=== PATIENT | male | born 1975 | race Caucasian/White ===

== ENCOUNTER 2018-05-29 14:33 | Inpatient (IN) | payer OTHER ==
[~2018-05-29] VITALS: Ht 165.1 cm; Wt 64.9 kg
[~2018-05-29 14:33] MED LIST changes: -BISA5TAB5 PO; -FURO40TA6 PO; -REGADENOSON 0.4 MG/5 ML SYRINGE ONE; -SERT50TA PO
[2018-05-29 15:12] VITALS: BP 82/58
[2018-05-29] MEDS ORDERED: BISA5TAB5 PO (16:14)
[2018-05-29] MEDS ORDERED: SERT50TA PO (16:14)
[2018-05-29] MEDS ORDERED: ACETAMINOPHEN 325 MG TABLET PO PRN (16:30)
[2018-05-29] MEDS ORDERED: FUROSEMIDE 40 MG TABLET PO SCH (16:30)
[2018-05-29 16:38] LABS: BASOPHILS # (AUTO) 0.19 x10^3/uL (0-0.1); BASOPHILS % (AUTO) 2 % (0-1); EOSINOPHILS # (AUTO) 0.07 x10^3/uL (0-0.4); EOSINOPHILS % (AUTO) 1 % (1-7); LYMPHOCYTES % (AUTO) 9 % (22-44); MD NO; MEAN CORPUSCULAR HEMOGLOBIN 29.1 pg (27.5-34.5); MEAN CORPUSCULAR VOLUME 88.1 fL (81-97); MEAN PLATELET VOLUME 9.6 fL (7.4-10.4); MONOCYTES % (AUTO) 4 % (2-9); NEUTROPHILS # (AUTO) 9.48 x10^3/uL (1.8-6.8); NEUTROPHILS % (AUTO) 84 % (42-75); PLATELET COUNT 354 x10^3/uL (130-400); RED BLOOD COUNT 4.98 x10^6/uL (4.38-5.82); RED CELL DISTRIBUTION WIDTH 14.1 % (9.4-14.8)
[2018-05-29 16:47] LABS: ALANINE AMINOTRANSFERASE 76 U/L (12-78); ALBUMIN 3.3 g/dL (3.4-5.0); ANION GAP 9 mmol/L (5-15); CALCIUM 8.4 mg/dL (8.5-10.1); CHLORIDE 102 mmol/L (98-107)
[2018-05-29] MEDS ORDERED: FURO40TA6 PO (16:48)
[2018-05-29 16:51] LABS: ALKALINE PHOSPHATASE 94 U/L (45-117); BILIRUBIN,TOTAL 2.5 mg/dL (0.2-1.0); TOTAL PROTEIN 6.9 g/dL (6.4-8.2); TROPONIN I < 0.015 ng/mL (0.000-0.045)
[2018-05-29] MEDS ORDERED: FUROSEMIDE 20 MG/2 ML ONE (17:28)
[2018-05-29] MEDS ORDERED: FUROSEMIDE 20 MG/2 ML IV SCH (17:30)
[2018-05-29 17:35] VITALS: BP 94/64
[2018-05-29 18:27] VITALS: BP 92/66
[2018-05-29] MEDS: SPIRONOLACTONE 25 MG TABLET PO SCH (18:29)
[2018-05-29 20:44] VITALS: BP 91/54
[2018-05-29] MEDS: SACUBITRIL/VALSARTAN 24MG-26MG TAB PO SCH (21:22)
[2018-05-29] MEDS: SODIUM CHLORIDE FLUSH 10ML SYR IVF SCH (21:22)
[2018-05-29] MEDS: RANOLAZINE 500 MG TAB.ER.12H PO SCH (21:22)
[2018-05-29 22:00] LABS: TROPONIN I < 0.015 ng/mL (0.000-0.045)
[2018-05-29] MEDS: METOPROLOL SUCCINATE 25 MG TAB.ER.24H PO SCH (22:45)
[2018-05-30 01:00] VITALS: BP 91/63
[2018-05-30 04:31] LABS: INTERNATIONAL NORMALIZED RATIO 7.09 (0.93-1.1)
[2018-05-30 04:38] LABS: ANION GAP 9 mmol/L (5-15); CHLORIDE 102 mmol/L (98-107)
[2018-05-30 04:45] LABS: CREATININE 1.52 mg/dL (0.7-1.3); TROPONIN I < 0.015 ng/mL (0.000-0.045)
[2018-05-30] MEDS ORDERED: ATENOLOL 50 MG TABLET PO SCH (06:00)
[2018-05-30 07:30] VITALS: BP 96/68
[2018-05-30] MEDS: SODIUM CHLORIDE FLUSH 10ML SYR IVF SCH ×2 (09:00→21:22)
[2018-05-30] MEDS: RANOLAZINE 500 MG TAB.ER.12H PO SCH ×2 (09:04→21:21)
[2018-05-30] MEDS: SACUBITRIL/VALSARTAN 24MG-26MG TAB PO SCH ×2 (09:04→21:21)
[2018-05-30] MEDS: DOCUSATE 100 MG CAPSULE PO SCH (09:05)
[2018-05-30] MEDS: METOPROLOL SUCCINATE 25 MG TAB.ER.24H PO SCH ×2 (09:05→21:21)
[2018-05-30] MEDS: PANTOPROZOLE 40MG TABLET PO SCH (09:05)
[2018-05-30 13:25] VITALS: BP 87/57
[2018-05-30] MEDS ORDERED: ONDANSETRON 2MG/ML, 2ML IVPush PRN (15:00)
[2018-05-30] MEDS: FUROSEMIDE 40 MG/4 ML IV SCH (16:03)
[2018-05-30] MEDS: SPIRONOLACTONE 25 MG TABLET PO SCH (18:05)
[2018-05-30 20:47] VITALS: BP 90/56
[2018-05-31 02:36] VITALS: BP 92/57
[2018-05-31 05:48] LABS: INTERNATIONAL NORMALIZED RATIO 4.04 (0.93-1.1); PROTHROMBIN TIME 40.9 Seconds (9.6-11.5)
[2018-05-31 05:52] LABS: ANION GAP 9 mmol/L (5-15); CALCIUM 8.4 mg/dL (8.5-10.1); CHLORIDE 104 mmol/L (98-107); CREATININE 1.22 mg/dL (0.7-1.3)
[2018-05-31 07:47] VITALS: BP 89/59
[2018-05-31] MEDS: FUROSEMIDE 40 MG/4 ML IV SCH (08:29)
[2018-05-31] MEDS: METOPROLOL SUCCINATE 25 MG TAB.ER.24H PO SCH ×2 (08:29→21:28)
[2018-05-31] MEDS: PANTOPROZOLE 40MG TABLET PO SCH (08:29)
[2018-05-31] MEDS: SODIUM CHLORIDE FLUSH 10ML SYR IVF SCH ×2 (08:29→21:34)
[2018-05-31] MEDS: RANOLAZINE 500 MG TAB.ER.12H PO SCH ×2 (08:30→21:34)
[2018-05-31] MEDS ORDERED: HOLD COUMADIN MC PRN (08:30)
[2018-05-31] MEDS: SACUBITRIL/VALSARTAN 24MG-26MG TAB PO SCH ×2 (08:30→21:27)
[2018-05-31] MEDS: DOCUSATE 100 MG CAPSULE PO SCH (08:34)
[2018-05-31 14:01] VITALS: BP 87/56
[2018-05-31] MEDS: SPIRONOLACTONE 25 MG TABLET PO SCH (16:52)
[2018-05-31 20:04] VITALS: BP 94/64
[2018-06-01 01:25] VITALS: BP 86/49
[2018-06-01 04:39] LABS: INTERNATIONAL NORMALIZED RATIO 2.02 (0.93-1.1); PROTHROMBIN TIME 20.7 Seconds (9.6-11.5)
[2018-06-01 04:42] LABS: CALCIUM 8.3 mg/dL (8.5-10.1); CHLORIDE 103 mmol/L (98-107)
[2018-06-01 04:50] LABS: CREATININE 1.22 mg/dL (0.7-1.3)
[2018-06-01 04:57] VITALS: BP 89/57
[2018-06-01 04:59] LABS: ANION GAP 7 mmol/L (5-15)
[2018-06-01 07:54] VITALS: BP 99/63
[2018-06-01] MEDS: DOCUSATE 100 MG CAPSULE PO SCH (08:52)
[2018-06-01] MEDS: RANOLAZINE 500 MG TAB.ER.12H PO SCH (08:52)
[2018-06-01] MEDS: METOPROLOL SUCCINATE 25 MG TAB.ER.24H PO SCH (08:52)
[2018-06-01] MEDS: PANTOPROZOLE 40MG TABLET PO SCH (08:53)
[2018-06-01] MEDS: SODIUM CHLORIDE FLUSH 10ML SYR IVF SCH (08:53)
[2018-06-01] MEDS ORDERED: FUROSEMIDE 40 MG TABLET PO SCH (09:00)
[2018-06-01] MEDS ORDERED: FURO40TA6 PO (09:07)
[2018-06-01] MEDS: SACUBITRIL/VALSARTAN 24MG-26MG TAB PO SCH (10:17)
== END 2018-06-01 10:39 | disposition home or self-care (01) | DRG 291 ==
LOC: 5SO 14:47
PROVIDERS: ADMIT Internal Medicine Cardiovascular Disease; ATTEND Internal Medicine Cardiovascular Disease
DX: I11.0 Hypertensive heart disease with heart failure (principal); I49.01 Ventricular fibrillation; D68.69 Other thrombophilia; I50.43 Acute on chronic combined systolic (congestive) and diastolic (congestive) heart failure; I42.9 Cardiomyopathy, unspecified; E11.9 Type 2 diabetes mellitus without complications; I50.82 Biventricular heart failure; K76.1 Chronic passive congestion of liver; Z86.73 Personal history of transient ischemic attack (TIA), and cerebral infarction without residual deficits; Z87.891 Personal history of nicotine dependence; Z95.810 Presence of automatic (implantable) cardiac defibrillator; I95.9 Hypotension, unspecified; Z79.899 Other long term (current) drug therapy; Z79.01 Long term (current) use of anticoagulants
CPT/HCPCS: 36415; 71045; 80048; 80053; 83880; 84484; 85025; 85610; 93005; G0378; J1940; J2405

== ENCOUNTER → 2018-05-29 | Outpatient (CLI) | payer OTHER ==
[~2018-05-29] MED LIST: BISA5TAB5 PO; CARV6.2512 PO; CEPH-368 PO; EPLE25TA4 PO; FURO40TA6 PO; HYDR1TAB14 PO; PANT40TA3 PO; RAMI10CA59 PO; RANO10002 PO; REGADENOSON 0.4 MG/5 ML SYRINGE ONE; SACU1TAB PO; SERT50TA PO; WARF5TAB PO
[2018-05-29 15:12] VITALS: BP 82/58
== END | disposition home or self-care (01) ==
LOC: CVU 06:52
PROVIDERS: ATTEND Nurse Practitioner Family
DX: I21.19 ST elevation (STEMI) myocardial infarction involving other coronary artery of inferior wall (principal); I08.1 Rheumatic disorders of both mitral and tricuspid valves; I42.9 Cardiomyopathy, unspecified; I11.0 Hypertensive heart disease with heart failure; I50.9 Heart failure, unspecified; R06.02 Shortness of breath; Z79.01 Long term (current) use of anticoagulants
CPT/HCPCS: 0399T; 78452; 93017; A9502; C8929; J2785; Q9957

== ENCOUNTER 2021-03-11 08:08 | Day surgery (SDC) | payer MEDICARE ==
[~2021-03-11] VITALS: Ht 165.1 cm; Wt 62.3 kg
[~2021-03-11 08:08] MED LIST changes: +BISA5TAB5 PO; +FURO40TA6 PO; -HYDR1TAB14 PO; +HYDR1TAB15 PO; +SERT50TA PO; -WARF5TAB PO; +WARF5TAB2 PO; +[UNRECOGNIZED DRUG - CODE] IV
[2021-03-11] MEDS ORDERED: SODIUM CHLORIDE 0.9% 1,000 ML IV SCH (09:00)
[2021-03-11] MEDS ORDERED: POTA-143 PO (09:01)
[2021-03-11] MEDS ORDERED: ASPI81TA45 PO (09:01)
[2021-03-11] MEDS ORDERED: CARV3.1212 PO (09:01)
[2021-03-11] MEDS ORDERED: AMIO200T42 PO (09:01)
[2021-03-11 09:17] VITALS: BP 105/82
[2021-03-11] MEDS ORDERED: PLEASE ENTER HEIGHT AND WEIGHT MC SCH (09:30)
[2021-03-11] MEDS ORDERED: CEFAZOLIN PMX 1GM/50ML 50 ML IVPB ONE (10:00)
[2021-03-11] MEDS ORDERED: CEFAZOLIN PMX 1GM/50ML 50 ML ONE (10:05)
[2021-03-11] MEDS ORDERED: LIDOCAINE 2%, 20ML ONE (10:05)
[2021-03-11] MEDS ORDERED: MIDAZOLAM 1 MG/ML, 5ML ONE (10:05)
[2021-03-11] MEDS ORDERED: CEFAZOLIN 1,000 MG ONE (10:05)
[2021-03-11] MEDS ORDERED: FENTANYL PF 100 MCG/2ML ONE ×2 (10:05→10:48)
[2021-03-11 10:48] LABS: BASOPHILS % (AUTO) 1 % (0-1); EOSINOPHILS % (AUTO) 1 % (1-7); LYMPHOCYTES % (AUTO) 13 % (22-44); MEAN CORPUSCULAR HEMOGLOBIN 26.7 pg (27.5-34.5); MEAN CORPUSCULAR HGB CONC 32.3 g/dL (33.2-36.2); MEAN PLATELET VOLUME 9.2 fL (7.4-10.4); MONOCYTES % (AUTO) 6 % (2-9); NEUTROPHILS % (AUTO) 79 % (42-75); PLATELET COUNT 225 x10^3/uL (130-400); RED BLOOD COUNT 4.77 x10^6/uL (4.38-5.82)
[2021-03-11] MEDS ORDERED: EPHEDRINE 50 MG/ML, 1ML ONE (10:48)
[2021-03-11] MEDS ORDERED: ONDANSETRON 2MG/ML, 2ML ONE (10:48)
[2021-03-11] MEDS ORDERED: MIDAZOLAM 1 MG/ML, 2ML ONE (10:48)
[2021-03-11] MEDS ORDERED: DEXAMETHASONE 4 MG/ML, 1ML ONE (10:48)
[2021-03-11 10:55] LABS: INTERNATIONAL NORMALIZED RATIO 1.53 (0.93-1.1)
[2021-03-11 10:57] LABS: ANION GAP 7 mmol/L (5-15); CALCIUM 8.9 mg/dL (8.5-10.1); CHLORIDE 103 mmol/L (98-107); CREATININE 1.53 mg/dL (0.7-1.3)
[2021-03-11] MEDS ORDERED: PROPOFOL 10 MG/ML, 20ML ONE (11:07)
[2021-03-11] MEDS ORDERED: [UNRECOGNIZED DRUG - REMARK] MC PRN (12:00)
[2021-03-11] MEDS ORDERED: LORazepam 2 MG/ML, 1ML IVPush PRN (12:00)
[2021-03-11] MEDS ORDERED: DIPHENHYDRAMINE 50 MG/ML, 1ML IVPush PRN ×2 (12:00)
[2021-03-11] MEDS ORDERED: PROMETHAZINE 25 MG/ML, 1ML IVPush PRN (12:00)
[2021-03-11] MEDS ORDERED: FENTANYL PF 100 MCG/2ML IV PRN (12:00)
[2021-03-11] MEDS ORDERED: OXYcodone 5 MG/5 ML ORAL.SOL UDC PO PRN (12:00)
[2021-03-11] MEDS ORDERED: MEPERIDINE/PF 25MG/0.5ML IVPush PRN (12:00)
[2021-03-11] MEDS ORDERED: HYDROmorphone 1 MG/ML, 1ML INJ IVPush PRN (12:00)
[2021-03-11] MEDS ORDERED: LABETALOL 5MG/ML, 20ML IV PRN (12:00)
[2021-03-11] MEDS ORDERED: EPHEDRINE 50 MG/ML, 1ML IVPush PRN (12:00)
[2021-03-11] MEDS ORDERED: ACETAMINOPHEN 325 MG TABLET PO PRN ×2 (12:00)
[2021-03-11] MEDS ORDERED: ALBUTEROL SULFATE 2.5 MG/3 ML NPPB PRN (12:00)
[2021-03-11] MEDS ORDERED: MIDAZOLAM 1 MG/ML, 2ML IV PRN (12:00)
[2021-03-11] MEDS ORDERED: PROMETHAZINE 12.5 MG SUPP PR PRN (12:00)
[2021-03-11] MEDS ORDERED: DIAZEPAM 5 MG/ML, 2ML IVPush PRN (12:00)
[2021-03-11] MEDS ORDERED: ONDANSETRON 2MG/ML, 2ML IVPush PRN (12:00)
[2021-03-11] MEDS ORDERED: hydrALAzine 20 MG/ML, 1ML IV PRN (12:00)
[2021-03-11] MEDS ORDERED: SACUBITRIL/VALSARTAN 24MG-26MG TAB PO SCH (21:00)
[2021-03-11] MEDS ORDERED: SODIUM CHLORIDE FLUSH 10ML SYR IVF SCH (21:00)
[2021-03-11] MEDS ORDERED: CARVEDILOL 3.125 MG TABLET PO SCH (21:00)
[2021-03-12] MEDS ORDERED: SERTRALINE 50MG TABLET PO SCH (09:00)
[2021-03-12] MEDS ORDERED: AMIODARONE 200 MG TABLET PO SCH (09:00)
[2021-03-12] MEDS ORDERED: ASPIRIN 81 MG TABLET EC PO SCH (09:00)
[2021-03-12] MEDS ORDERED: FUROSEMIDE 40 MG TABLET PO SCH (09:00)
[2021-03-12] MEDS ORDERED: WARFARIN 5 MG TABLET PO-COUM SCH (09:00)
[2021-03-12] MEDS ORDERED: TEMPLATE NON-FORMULARY MED. (Eplerenone 25 MG) PO SCH (09:00)
[2021-03-12] MEDS ORDERED: POTASSIUM CHLORIDE 20 MEQ TAB.ER.PRT PO SCH (09:00)
== END 2021-03-11 16:32 | disposition home or self-care (01) ==
LOC: CACL 08:08
PROVIDERS: ATTEND Internal Medicine Cardiovascular Disease
DX: Z45.02 Encounter for adjustment and management of automatic implantable cardiac defibrillator (principal); I42.0 Dilated cardiomyopathy; I50.42 Chronic combined systolic (congestive) and diastolic (congestive) heart failure; I44.2 Atrioventricular block, complete; I44.7 Left bundle-branch block, unspecified; I47.2 Ventricular tachycardia; E66.3 Overweight; Z20.822 Contact with and (suspected) exposure to COVID-19; Z68.22 Body mass index [BMI] 22.0-22.9, adult; Z79.01 Long term (current) use of anticoagulants; Z79.82 Long term (current) use of aspirin; Z79.899 Other long term (current) drug therapy
CPT/HCPCS: 33264; 36415; 71046; 80048; 85025; 85610; 93005; C1882; J0690; J1100; J2250; J2405; J2704; J3010; U0003; U0005; 33231; 33241